=== PATIENT | female | born 1990 | race African-American/Black ===

== ENCOUNTER 2024-02-10 02:32 | Emergency (ER) | payer MEDICAID ==
[~2024-02-10] VITALS: Ht 162.6 cm; Wt 55.0 kg
[2024-02-10 02:43] VITALS: BP 143/101; PULSE 97; RESP 18; TEMP 98.4; O2SAT 98
== END 2024-02-10 06:36 | disposition left against medical advice (07) ==
LOC: ER 02:55
DX: F41.9 Anxiety disorder, unspecified (principal); Z53.21 Procedure and treatment not carried out due to patient leaving prior to being seen by health care provider